=== PATIENT | female | born 1970 | race Caucasian/White ===

== ENCOUNTER 2020-05-01 13:10 | Outpatient (CLI) | payer OTHER, SELFPAY ==
--- NOTE | 2020-05-01 13:13 | ECG_ITS ---
Measurements Intervals [place] Rate: 78 P: 41 ND: 137 QRS: 14 QRSD: 94 T: 32 QT: 379 QTc: 433 Interpretive Statements SINUS RHYTHM WITH SINUS ARRHYTHMIA MINIMAL Q WAVES- HIGH LATERAL LEADS BORDERLINE ECG Electronically Signed On 05-01-2020 16:27:11 CDT by David Bazzi D.O.
[2020-05-01 14:10] LABS: Alanine Aminotransferase 55 U/L (4-35); Albumin Level 4.6 g/dL (3.5-5.1); Alkaline Phosphatase 95 U/L (38-126); Amylase 82 U/L (30-110); Aspartate Amino Transferase 38 U/L (14-36); Bilirubin,Total 0.4 mg/dL (0.2-1.3); Lipase 174 U/L (23-300)
== END 2020-05-01 13:11 | disposition home or self-care (01) ==
LOC: ANHSURGERY 13:13
PROVIDERS: PCP Family Medicine; Visit Provider Surgery
DX: K80.10 Calculus of gallbladder with chronic cholecystitis without obstruction (principal); Z01.812 Encounter for preprocedural laboratory examination; R94.31 Abnormal electrocardiogram [ECG] [EKG]
CPT/HCPCS: 36415; 80076; 82150; 83690; 86850; 86900; 86901; 93005

== ENCOUNTER 2020-05-01 13:17 | Outpatient (CLI) | payer OTHER, SELFPAY ==
[2020-05-01 13:55] LABS: Hematocrit 34.5 % (37.0-47.0); Hemoglobin 11.5 g/dL (12.0-15.0); Mean Corpuscular HGB Conc 33.3 g/dl (32-36); Mean Corpuscular Hemoglobin 31.1 pg (26-34); Mean Corpuscular Volume 93.2 fl (80-100); Mean Platelet Volume 10.5 fl (7.4-10.4); Platelet Count Result 212 k/mm3 (150-375); Red Cell Distribution Width 12.4 % (11.5-14.5); White Blood Count 6.7 K/mm3 (4.5-10.0)
[2020-05-01 14:09] LABS: Alanine Aminotransferase 53 U/L (4-35); Albumin Level 4.7 g/dL (3.5-5.1); Alkaline Phosphatase 94 U/L (38-126); Anion Gap 7 mmol/L (8-16); Aspartate Amino Transferase 38 U/L (14-36); Bilirubin,Total 0.4 mg/dL (0.2-1.3); Blood Urea Nitrogen 21 mg/dL (7-17); Calcium 9.7 mg/dL (8.4-10.2); Carbon Dioxide 29 mmol/L (22-30); Chloride 104 mmol/L (98-107); Cholesterol 237 mg/dL (0-200); Estimated Glomerular Filt Rate > 60; Glucose 90 mg/dL (65-105); HDL Direct 68 mg/dL; Potassium 4.8 mmol/L (3.4-5.0); Sodium 140 mmol/L (137-145); Triglycerides 135 mg/dL (<150)
[2020-05-01 14:19] LABS: LDL Cholesterol Direct 134 mg/dL
[2020-05-01 14:21] LABS: Iron 69 ug/dL (37-170)
[2020-05-01 14:31] LABS: Percent Iron Saturation 18 % (20-50)
[2020-05-01 15:55] LABS: Vitamin D 25 Hydroxy 42.3 ng/mL
== END 2020-05-01 13:18 | disposition home or self-care (01) ==
LOC: ANHLAB 13:21
PROVIDERS: PCP Family Medicine; Visit Provider Physician Assistant Medical
DX: D64.9 Anemia, unspecified (principal); Z13.220 Encounter for screening for lipoid disorders; N91.2 Amenorrhea, unspecified; E55.9 Vitamin D deficiency, unspecified; R79.89 Other specified abnormal findings of blood chemistry
CPT/HCPCS: 36415; 80053; 80061; 82306; 82607; 83540; 83550; 85027

== ENCOUNTER 2020-05-05 01:28 | Outpatient (CLI) | payer OTHER, SELFPAY ==
[2020-05-05 16:32] LABS: SARS-CoV-2 RNA PCR Negative
== END 2020-05-05 01:29 | disposition home or self-care (01) ==
LOC: ANHCOVIDDT 01:28
PROVIDERS: PCP Family Medicine; Visit Provider Surgery
DX: Z01.812 Encounter for preprocedural laboratory examination (principal); Z20.828 Contact with and (suspected) exposure to other viral communicable diseases
CPT/HCPCS: 87635; C9803; U0003

== ENCOUNTER 2020-05-07 00:34 | Day surgery (SDC) | payer OTHER, SELFPAY ==
[2020-05-01 09:47] VITALS: BMI 29.1
--- NOTE | 2020-05-06 14:39 | WPDANESEPPF ---
Anes - Initial Pre Proc Eval Procedure: Operation Date: 05/07/20 10:00 Proposed Procedures p Laparoscopic Cholecystectomy - Sebastian Rodriguez MD Date/Time: 05/06/20 14:39 Surgeon: Sebastian Rodriguez MD Pre Op Diagnosis: Chronic Cholelithiasis With Stones Patient Data Age: 50 Gender: F Height: 1.78 m Weight: 92.08 kg Allergies Allergy/AdvReac Type Severity Reaction Status Date / Time No Known Allergies Allergy Mild Verified 05/01/20 09:48 Home Medications Medication Instructions Recorded Confirmed Type ibuprofen 800 mg PO DAILY 05/01/20 05/01/20 History Patient hx anesthesia problems: post op nausea/vomiting Family hx anesthesia problems: none [facility] Past Medical History Medical History (Updated 05/06/20 @ 14:40 by Buck Infante MD) BMI 29.0-29.9,adult Endometriosis GERD (gastroesophageal reflux disease) Psoriasis Surgical History Surgical History H/O: hysterectomy History of delivery Social History Social History Smoking status: Never smoker Smoking end date: 08/29/08 Alcohol intake: current Drinks per week: 5 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 Questions were solicited and answers provided to the satisfaction of the patient/family/POA.
[2020-05-07] VITALS (9 sets, daily range): BP systolic 103–132; BP diastolic 67–85; PULSE 56–101; RESP 10–20; TEMP 36.1–36.5; O2SAT 98–100
--- NOTE | 2020-05-07 08:05 | WPDHPUPDATE1 ---
History and Physical Update Update Date/Time: 05/07/20 08:05 History and Physical has been reviewed, including an updated exam of the patient. There are NO changes in the patient's condition. Risks, benefits, and alternatives have been discussed and questions answered. Patient agrees to proceed with procedure.
[2020-05-07] MEDS: ACETAMINOPHEN 500 MG TABLET 1000 MG PO (09:01)
[2020-05-07] MEDS: SCOPOLAMINE 1.5 MG PATCH TRANSDERM (09:01)
[2020-05-07] MEDS: LACTATED RINGERS 1,000 ML 30 ML IV CONT ×2 (09:02→11:00)
[2020-05-07] MEDS: KETOROLAC 15 MG/ML VIAL (*BKC) IV PUSH (09:02)
[2020-05-07] MEDS: ceFAZolin 2 GM/D5W 50 ML 2 GM/50 ML BAG IVPB (09:57)
--- NOTE | 2020-05-07 10:00 | PM.PROC ---
Procedure Note - Detailed Date of procedure: 05/07/20 Pre-op diagnosis: Chronic Cholelithiasis With Stones Chronic cholecystitis, cholelithiasis Post-op diagnosis: same Procedure performed: Laparoscopic cholecystectomy Description of procedure: The patient was taken to surgery and induced into general anesthesia. The abdomen was prepped and draped. Trocars were placed in the usual fashion using 0.5% Marcaine with epinephrine and applied Medical optical trocars. A 5 millimeter camera was used. The gallbladder was decompressed with a laparoscopic aspirator. The cholecystotomy was closed with a Vicryl endo-loop. The gallbladder was retracted anterosuperiorly. Adhesions to the gallbladder were taken down so that the cholecystohepatic triangle was exposed. Traction was placed on the infundibulum. The cystic duct and cystic artery were dissected out very clearly. The gallbladder was dissected off the liver at its lower 3rd. Critical view was achieved. We securely clipped and divided the cystic duct and cystic artery. The gallbladder was then further retracted so that the peritoneal attachments to the liver could be divided. Once the gallbladder was freed entirely, it was placed in an Endo-Catch bag and retrieved through the 10 11 epigastric trocar site. The epigastric trocar was then replaced. We reviewed the right upper quadrant. It was irrigated and suctioned. All looked good with no evidence of bleeding or bile leakage. We evacuated CO2 and removed the trocar sleeves. Skin wounds were closed with subcuticular 4 O Monocryl skin suture. The wounds were dressed with Exofin surgical adhesive. Patient was awakened and taken to recovery in good condition. Sponge and needle counts were correct x2. Anesthesia: GETA and local (0.5% Marcaine with epinephrine) Surgeon: Sebastian Rodriguez MD Critical Care Clinical Nurse Specialist: Panda Estimated blood loss (mL): 5 Drains: No Packing: No Pathology: yes (Gallbladder) Complications: None Condition: stable Disposition: PACU Findings: Mild chronic inflammation, no gallstones noted. No biliary ductal dilatation, no liver abnormalities.
[2020-05-07] MEDS: BUPIVACAINE/EPINEPHRINE 0.5% 30 ML VIAL INFILTRATE (10:53)
== END 2020-05-07 12:57 | disposition home or self-care (01) ==
PROVIDERS: PCP Family Medicine; Visit Provider Surgery
PROC: 0FT44ZZ Resection of Gallbladder, Percutaneous Endoscopic Approach (ICD-10-PCS; CPT 47562; principal; 2020-05-07 10:00)
DX: K80.10 Calculus of gallbladder with chronic cholecystitis without obstruction (principal)
CPT/HCPCS: 47562; 36415; 80053; 80061; 80076; 82150; 82306; 82607; 83540; 83550; 83690; 85027; 86850; 86900; 86901; 87635; 88304; 93005; A9270; C1713; C9803; J0690; J1100; J1170; J1885; J2250; J2405; J2704; J3010; J7120; U0003

== ENCOUNTER 2020-06-10 09:47 | Outpatient (CLI) | payer OTHER, SELFPAY ==
[2020-06-10 10:53] LABS: Hematocrit 35.5 % (37.0-47.0); Hemoglobin 11.7 g/dL (12.0-15.0); Mean Corpuscular Hemoglobin 31.2 pg (26-34); Mean Corpuscular Volume 94.7 fl (80-100); Platelet Count Result 228 k/mm3 (150-375); Red Blood Count 3.75 M/mm3 (4.2-5.4); Red Cell Distribution Width 12.5 % (11.5-14.5); White Blood Count 5.9 K/mm3 (4.5-10.0)
[2020-06-10 11:18] LABS: Alanine Aminotransferase 32 U/L (4-35); Albumin Level 4.5 g/dL (3.5-5.1); Alkaline Phosphatase 92 U/L (38-126); Anion Gap 6 mmol/L (8-16); Aspartate Amino Transferase 36 U/L (14-36); Bilirubin,Total 0.7 mg/dL (0.2-1.3); Blood Urea Nitrogen 17 mg/dL (7-17); Calcium 10.2 mg/dL (8.4-10.2); Carbon Dioxide 32 mmol/L (22-30); Chloride 102 mmol/L (98-107); Estimated Glomerular Filt Rate > 60; Glucose 95 mg/dL (65-105); Potassium 4.5 mmol/L (3.4-5.0); Sodium 140 mmol/L (137-145)
[2020-06-10 12:01] LABS: Iron 101 ug/dL (37-170)
[2020-06-10 12:10] LABS: Percent Iron Saturation 29 % (20-50)
== END 2020-06-10 09:48 | disposition home or self-care (01) ==
PROVIDERS: PCP Family Medicine; Visit Provider Physician Assistant Medical
DX: R79.89 Other specified abnormal findings of blood chemistry (principal); N28.9 Disorder of kidney and ureter, unspecified; D64.9 Anemia, unspecified; D50.9 Iron deficiency anemia, unspecified
CPT/HCPCS: 36415; 80053; 83540; 83550; 85027

== ENCOUNTER 2020-09-21 19:54 | Emergency (ER) | payer OTHER, SELFPAY ==
--- NOTE | ~2020-09-21 | XR_ITS ---
EXAMINATION: XR lumbar spine 2-3V EXAM DATE: 09/21/2020 20:55 INDICATION: Low back pain since August 20 radiating to hips. TECHNIQUE: Lumber spine frontal, lateral, lateral L5-S1 projections for interpretation. There is no prior study for comparison. FINDINGS: Mild lumbar dextrocurvature which could be positional or scoliosis. There are cholecystect khoi clips. Vertebral body and disc heights are well-maintained. The vertebral bodies are aligned in t he AP dimension. Mild lumbar facet arthropathy. Sacrum, sacroiliac joints, sacral arcuate lines ar e intact. Paraspinal soft tissue is unremarkable. There are no bony erosions identified. IMPRESSION: Mild lumbar facet arthropathy. Mild dextrocurvature. Reviewed, dictated and finalized at location A. T MARKER
[2020-09-21 19:55] VITALS: BP 149/95; PULSE 87; RESP 18; TEMP 36.2; O2SAT 100
[2020-09-21] MEDS: KETOROLAC (*BKC) 60 MG/2 ML VIAL IM (20:30)
[2020-09-21] MEDS: diazePAM (*CRX) 5 MG TABLET PO (20:31)
[2020-09-21 20:35] VITALS: BP 126/58; PULSE 84; RESP 16; O2SAT 100
[2020-09-21 22:00] VITALS: BP 157/84; PULSE 73; RESP 18; O2SAT 100
--- NOTE | 2020-09-21 22:34 | ED.BACK ---
HPI - Back Pain/Injury General Chief Complaint: Back Pain/Injury Stated Complaint: my back has locked up Time Seen by Provider: 09/21/20 20:00 History of Present Illness HPI Narrative: Patient is a 50-year-old female who presents ER with low back pain. Ongoing for 1 month since lifting up a tote bag around [place]. Today she had some increased discomfort that sharp and this evening it made her go to her knees due to the pain. She has no focal weakness in the legs. No numbness or tingling in the pelvis or lower extremities. Has not found any alleviating factors at home. She did try some Voltaren cream and it did not help. Related Data Allergies Allergy/AdvReac Type Severity Reaction Status Date / Time No Known Allergies Allergy Mild Verified 09/21/20 19:55 Review of Systems Review of Systems: All systems reviewed & are unremarkable except as noted in HPI and below Constitutional: Constitutional: Denies chills and Denies fever(s) Musculoskeletal: Musculoskeletal: Reports back pain, Denies arthralgias and Reports muscle cramps Neurologic: Denies focal weakness, Denies numbness and Denies weakness PMFSH Past Medical History Medical History (Updated 09/21/20 @ 22:37 by Yayo Hazel MD) BMI 29.0-29.9,adult Cholecystectomy planned Endometriosis GERD (gastroesophageal reflux disease) Psoriasis Surgical History Surgical History H/O: hysterectomy History of delivery Hx laparoscopic cholecystectomy 05/07/2020 Family History Family History Mother Family history of primary malignant neoplasm of liver Other Diabetes mellitus Social History Social History Smoking status: Never smoker Smoking end date: 08/29/08 Alcohol intake: current Drinks per week: 5 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 HEAD: Normocephalic, atraumatic. Back: No midline tenderness of the thoracic or lumbar spine. No reproducible paraspinal muscular tenderness of thoracic lumbar spine. No tenderness over the sacrum or SI joint. EXTREMITIES: Normal range of motion. No edema. SKIN: Warm, dry, no rash. NEURO: Alert and oriented x3. PSYCH: Normal mood and affect. Course Course Emergency Course: X-ray with arthritis. Patient still reports pain after Toradol and Valium. Will give 1 dose of [place] here. Discharge with anti-inflammatories muscle relaxers as well as [place] for breakthrough pain. Vital Signs Vital signs: Vital Signs Temperature 97.2 F L 09/21/20 19:55 Pulse Rate 87 09/21/20 19:55 Respiratory Rate 18 09/21/20 19:55 Blood Pressure 149/95 H 09/21/20 19:55 Pulse Oximetry 100 09/21/20 19:55 Temperature 97.2 F L 09/21/20 19:55 Pulse Rate 84 09/21/20 20:35 Respiratory Rate 16 09/21/20 20:35 Blood Pressure 126/58 L 09/21/20 20:35 Pulse Oximetry 100 09/21/20 20:35 MDM - Back Pain/Injury Imaging Data Radiologist's impression: ITS Impressions Lumbar Spine X-Ray 09/21/20 20:57 IMPRESSION: Mild lumbar facet arthropathy. Mild dextrocurvature. Discharge Plan Discharge Clinical Impression: Low back pain Patient Disposition: Home, Self-Care Condition: Stable Instructions: Acute Low Back Pain (ED) Additional Instructions: Return to the ER if you have increased pain in your back, you develop lower extremity weakness/numbness/paralysis, you have numbness or tingling in your private parts, or you are unable to control your ability to urinate/stool. Prescriptions: New cyclobenzaprine 10 mg tablet 10 mg PO TID PRN (Reason: muscle spasm) Qty: 20 RF: 0 hydrocodone-acetaminophen 5-325 mg tablet 1 tablet PO Q6H PRN (Reas
[2020-09-21] MEDS: HYDROcodone/acetaminophen (*CRX) 5-325 MG TABLET 1 TAB PO (22:56)
[2020-09-21 23:00] VITALS: BP 146/88; PULSE 68; RESP 18; O2SAT 99
== END 2020-09-21 23:00 | disposition home or self-care (01) ==
PROVIDERS: Emergency Provider Emergency Medicine; Family Provider Internal Medicine; PCP Family Medicine
DX: M54.5 Low back pain (principal); K21.9 Gastro-esophageal reflux disease without esophagitis; N80.9 Endometriosis, unspecified
CPT/HCPCS: 72100; 96372; 99283; A9270; J1885

== ENCOUNTER → 2021-01-09 11:13 | Outpatient (CLI) | payer OTHER, SELFPAY ==
--- NOTE | ~2021-01-09 | XR_ITS ---
XR_RIBSBICXR1_CR DATE: 01/09/2021 11:49 INDICATION: Pleurodynia TECHNIQUE: PA chest. Multiple views of left and right ribs. COMPARISON: None FINDINGS: Surgical clips, right upper quadrant, consistent with cholecystectomy. No left or right rib fracture or bone destruction is evident. Normal heart size. No hilar or mediastinal enlargement. The lungs are clear of infiltrate or consolid ation. No pleural effusion, pleural thickening or pneumothorax. IMPRESSION: No significant abnormality Reviewed, dictated and finalized at Location A. Reviewed, dictated and finalized at location A. IMPRESSION: No significant abnormality
== END ==
PROVIDERS: PCP Family Medicine; Visit Provider Physician Assistant Medical
DX: R07.81 Pleurodynia (principal)
CPT/HCPCS: 71111

== ENCOUNTER 2021-01-14 09:30 | Outpatient (CLI) | payer OTHER, SELFPAY ==
[2021-01-14 09:46] LABS: Basophils Percent Auto 0.6 % (0.2-1.2); Eosinophils Absolute Auto 0.2 K/mm3 (0-0.3); Eosinophils Percent Auto 2.8 % (0-4.4); Hemoglobin 11.7 g/dL (12.0-15.0); Immature Granulocyte Absolute 0.03 K/mm3 (0.00-0.031); Immature Granulocyte Percent A 0.5 % (0-0.5); Lymphocytes Absolute Auto 1.81 K/mm3 (0.9-3.2); Lymphocytes Percent Auto 28.3 % (18.3-44.2); Mean Corpuscular HGB Conc 32.5 g/dl (32-36); Mean Corpuscular Hemoglobin 31.1 pg (26-34); Mean Corpuscular Volume 95.7 fl (80-100); Monocytes Absolute Auto 0.3 K/mm3 (0.1-0.6); Monocytes Percent Auto 4.7 % (2.6-8.5); Neutrophils Percent Auto 63.1 % (45.5-73.1); Platelet Count Result 206 k/mm3 (150-375); Red Blood Count 3.76 M/mm3 (4.2-5.4); Red Cell Distribution Width 12.2 % (11.5-14.5); White Blood Count 6.4 K/mm3 (4.5-10.0)
[2021-01-14 09:58] LABS: Alanine Aminotransferase 48 U/L (4-35); Albumin Level 4.3 g/dL (3.5-5.1); Alkaline Phosphatase 92 U/L (38-126); Anion Gap 5 mmol/L (8-16); Aspartate Amino Transferase 48 U/L (14-36); Bilirubin,Total 0.3 mg/dL (0.2-1.3); Blood Urea Nitrogen 17 mg/dL (7-17); Calcium 9.4 mg/dL (8.4-10.2); Carbon Dioxide 30 mmol/L (22-30); Chloride 108 mmol/L (98-107); Estimated Glomerular Filt Rate > 60; Glucose 91 mg/dL (65-105); Potassium 4.7 mmol/L (3.4-5.0); Sodium 143 mmol/L (137-145)
[2021-01-14 13:58] LABS: Iron 109 ug/dL (37-170)
[2021-01-14 14:33] LABS: Percent Iron Saturation 35 % (20-50)
[2021-01-15 19:02] LABS: Hepatitis B Surface Antigen Negative (Negative)
[2021-01-15 19:08] LABS: HAV RESULT Negative (Negative); Hepatitis B Core IgM Result Negative (Negative)
[2021-01-15 19:20] LABS: Hepatitis C Virus Antibody Negative (Negative)
== END 2021-01-14 09:31 | disposition home or self-care (01) ==
LOC: ANHLAB 09:32
PROVIDERS: PCP Family Medicine; Visit Provider Family Medicine
DX: E61.1 Iron deficiency (principal); R79.89 Other specified abnormal findings of blood chemistry
CPT/HCPCS: 36415; 80053; 80074; 82977; 83540; 83550; 85025

== ENCOUNTER → 2021-01-30 11:14 | Outpatient (CLI) | payer OTHER, SELFPAY ==
--- NOTE | ~2021-01-30 | CT_ITS ---
EXAMINATION: CT abdomen pelvis w con EXAM DATE: 01/30/2021 11:39 INDICATION: R10.11 - Right upper quadrant pain. TECHNIQUE: Spiral CT of the abdomen and pelvis was performed following intravenous injection of 100 m L Omnipaque 350. Axial, coronal and sagittal images of the abdomen and pelvis were reviewed. The do se-length product (DLP) for this examination was 853.31 mGy-cm. The exposure was tailored according to patient size (auto mA exposure control), and iterative reconstruction (ASIR) was used as additiona l dose reduction technique. There is no prior study for comparison. FINDINGS: The liver, spleen, adrenal glands and pancreas are unremarkable. There are cholecystectomy clips. Portal and splenic veins are patent. Kidneys enhance symmetrically. There is no hydronephr osis. There is 4 cm right renal exophytic cysts. The uterus is not identified and has likely been malave rgically resected. The bladder is unremarkable. There is no retroperitoneal or pelvic lymphadenopat hy. The appendix is normal. The stomach and small bowel are unremarkable. There is expected amount of c olonic stool. No free intraperitoneal gas. The heart is normal in size. There are no pericardial or pleural effusions. The lung bases are unremarkable. The bones are unremarkable. IMPRESSION: 1. No acute intra-abdominal findings. Reviewed, dictated and finalized at location B.
== END ==
PROVIDERS: PCP Family Medicine; Visit Provider Physician Assistant Medical
DX: R10.11 Right upper quadrant pain (principal); G89.29 Other chronic pain
CPT/HCPCS: 74177; Q9967

== ENCOUNTER 2021-02-16 07:30 | Outpatient (CLI) | payer OTHER, SELFPAY ==
[2021-02-16 08:20] LABS: Basophils Percent Auto 0.5 % (0.2-1.2); Eosinophils Absolute Auto 0.1 K/mm3 (0-0.3); Hematocrit 39.4 % (37.0-47.0); Hemoglobin 12.7 g/dL (12.0-15.0); Immature Granulocyte Absolute 0.01 K/mm3 (0.00-0.031); Immature Granulocyte Percent A 0.2 % (0-0.5); Lymphocytes Absolute Auto 1.32 K/mm3 (0.9-3.2); Lymphocytes Percent Auto 22.2 % (18.3-44.2); Mean Corpuscular HGB Conc 32.2 g/dl (32-36); Mean Corpuscular Hemoglobin 31.4 pg (26-34); Mean Corpuscular Volume 97.5 fl (80-100); Mean Platelet Volume 10.9 fl (7.4-10.4); Monocytes Absolute Auto 0.3 K/mm3 (0.1-0.6); Monocytes Percent Auto 5.7 % (2.6-8.5); Neutrophils Absolute Auto 4.1 K/mm3 (1.3-6.7); Neutrophils Percent Auto 69.4 % (45.5-73.1); Platelet Count Result 207 k/mm3 (150-375); Red Blood Count 4.04 M/mm3 (4.2-5.4); Red Cell Distribution Width 12.9 % (11.5-14.5)
[2021-02-18 20:52] LABS: GGT 50 U/L (3-70)
== END 2021-02-16 07:31 | disposition home or self-care (01) ==
PROVIDERS: PCP Family Medicine; Visit Provider Physician Assistant Medical
DX: R74.8 Abnormal levels of other serum enzymes (principal); E61.1 Iron deficiency
CPT/HCPCS: 36415; 82977; 85025

== ENCOUNTER 2021-07-01 01:37 | Day surgery (SDC) | payer OTHER, SELFPAY ==
[2021-06-15 10:29] VITALS: BMI 26.5
--- NOTE | 2021-06-30 13:06 | PM.HPGS ---
History of Present Illness History of Present Illness Consent: Risks, benefits, and alternatives have been discussed and questions answered. Patient agrees to proceed with procedure. Chief complaint: screening Narrative: Sarah Tatum is a 51 year old female was referred for colon cancer screening Review of Systems Review of Systems: All systems reviewed & are unremarkable except as noted in HPI and below PMFSH Past Medical History Medical History BMI 25.0-25.9,adult BMI 27.0-27.9,adult BMI 29.0-29.9,adult Cholecystectomy planned Endometriosis GERD (gastroesophageal reflux disease) Psoriasis Surgical History Surgical History H/O: hysterectomy History of delivery Hx laparoscopic cholecystectomy 05/07/2020 Family History Family History Mother Family history of primary malignant neoplasm of liver Diabetes mellitus Social History Social History Smoking packs per day: 0.5 Smoking cigarettes per day: 10.0 Years smoked: 10 Smoking pack-years: 5.00 Smoking status: Former smoker Tobacco type: cigarettes Smoking end date: 08/29/08 Alcohol intake: current Drinks per week: 6 Alcohol use details: Social Substance use: never Substance use type: does not use Living arrangements: with family Additional living arrangements comments: and daughter 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 Gender identity (if verbalized by the patient): Female Sexual Orientation (if Verbalized by the Patient): Straight or Heterosexual Spiritual care concerns: No Agree to blood products: Yes Meds Home Medications and Allergies Home Medications Medication Instructions Recorded Confirmed Type ferrous sulfate 142 mg (45 mg 142 mg PO DAILY #30 tablet 01/19/21 07/01/21 Rx iron) tablet,extended release Allergies Allergy/AdvReac Type Severity Reaction Status Date / Time No Known Allergies Allergy Mild Verified 07/01/21 07:20 Exam Resp: Auscultation: clear to auscultation bilaterally Cardio: Rate: regular rate Rhythm: regular rhythm GI: GI Palp: Yes Soft to palpation and No Tenderness to palpation present (GI) Assessment and Plan Assessment and plan (1) Screening for colon cancer: Code(s): Z12.11 - Encounter for screening for malignant neoplasm of colon Status: Acute Assessment and Plan: Colonoscopy with possible biopsy or polypectomy or cautery or injection of substances.
[2021-07-01 07:22] VITALS: BP 114/86; PULSE 108; RESP 18; TEMP 36.5; O2SAT 100; BMI 26.2
[2021-07-01] MEDS: LACTATED RINGERS 1,000 ML 150 ML IV CONT (07:31)
--- NOTE | 2021-07-01 08:02 | P.PNAN_ITS ---
Anes - Initial Pre Proc Eval Procedure: Operation Date: 07/01/21 08:30 Proposed Procedures p Screening Colonoscopy - Tristen Bazan MD Date/Time: 07/01/21 08:02 Surgeon: Tristen Bazan MD Pre Op Diagnosis: screening Patient Data Age: 51 Gender: F Height: 1.78 m Weight: 82.8 kg Last Vital Signs Temp 97.7 F 07/01/21 07:22 Pulse 108 H 07/01/21 07:22 Resp 18 07/01/21 07:22 BP 114/86 07/01/21 07:22 Pulse Ox 100 07/01/21 07:22 Allergies Allergy/AdvReac Type Severity Reaction Status Date / Time No Known Allergies Allergy Mild Verified 07/01/21 07:20 Home Medications Medication Instructions Recorded Confirmed Type ferrous sulfate 142 mg (45 mg 142 mg PO DAILY #30 tablet 01/19/21 07/01/21 Rx iron) tablet,extended release Patient hx anesthesia problems: none Family hx anesthesia problems: none Results Review: All pre-operative results and documents have been reviewed as part of the pre-operative evaluation. [facility] Past Medical History Medical History (Updated 04/28/21 @ 08:23 by Joanne Rodney, PAC) BMI 25.0-25.9,adult BMI 27.0-27.9,adult BMI 29.0-29.9,adult Cholecystectomy planned Endometriosis GERD (gastroesophageal reflux disease) Psoriasis Surgical History Surgical History H/O: hysterectomy History of delivery Hx laparoscopic cholecystectomy 05/07/2020 Family History Family History (Updated 04/28/21 @ 08:13 by Art Martin) Mother Family history of primary malignant neoplasm of liver Diabetes mellitus Social History Social History (Updated 04/28/21 @ 08:15 by Art Martin) Smoking packs per day: 0.5 Smoking cigarettes per day: 10.0 Years smoked: 10 Smoking pack-years: 5.00 Smoking status: Former smoker Tobacco type: cigarettes Smoking end date: 08/29/08 Alcohol intake: current Drinks per week: 6 Alcohol use details: Social Substance use: never Substance use type: does not use Living arrangements: with family Additional living arrangements comments: and daughter 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 Gender identity (if verbalized by the patient): Female Sexual Orientation (if Verbalized by the Patient): Straight or Heterosexual Spiritual care concerns: No Agree to blood products: Yes Anes - Eval Final PreProcedure Day of Procedure 07/01/21 08:02 Patient weight: overweight Heart: regular rate and rhythm Lungs: clear to auscultation Airway: Mallampati scale class II Neurological: alert and oriented Last oral intake: >/= 8 hours ASA classification: II Emergent: no Anesthetic plan: proceed Anesthesia type and monitoring: general GIVS and standard monitoring Results Review: All pre-operative results and documents have been reviewed as part of the pre-operative evaluation. Informed Consent: The patient's anesthetic plan and its attendant risks and benefits were discussed with the patient/family/POA. Questions were solicited and answers provided to the satisfaction of the patient/family/POA.
[2021-07-01 08:49] VITALS: BP 113/78; PULSE 89; RESP 20; O2SAT 100
[2021-07-01 08:59] VITALS: BP 117/78; PULSE 86; RESP 18; O2SAT 100
[2021-07-01 09:09] VITALS: BP 115/80; PULSE 81; RESP 23; O2SAT 100
== END 2021-07-01 09:22 | disposition home or self-care (01) ==
PROVIDERS: PCP Family Medicine; Visit Provider Internal Medicine Gastroenterology
PROC: 0DJD8ZZ Inspection of Lower Intestinal Tract, Via Natural or Artificial Opening Endoscopic (ICD-10-PCS; CPT 45378; principal; 2021-07-01 08:30)
DX: Z12.11 Encounter for screening for malignant neoplasm of colon (principal); K21.9 Gastro-esophageal reflux disease without esophagitis; N80.9 Endometriosis, unspecified; L40.9 Psoriasis, unspecified; Z87.891 Personal history of nicotine dependence
CPT/HCPCS: 45378; J2001; J2704; J7120

== ENCOUNTER → 2021-10-13 11:36 | Outpatient (CLI) | payer OTHER, SELFPAY ==
--- NOTE | ~2021-10-13 | DEXA_ITS ---
Bone Density Report Name: ILENE HART Age: 51 Sex: Female Ethnicity: White Date of : 1970 Indication: postmenopausal; screening for osteoporosis; anorexia or bulimia; hysterectomy; Referring Provider: Joanne Rodney Study: Bone densitometry was performed. Exam Date: October 13, 2021 Accession number: [id number] Bone Density: Region BMD T-score Z-score Classification AP Spine (L1-L4) 1.053 0.1 0.9 Normal Femoral Neck (Left) 1.011 1.5 2.3 Normal Total Hip (Left) 1.086 1.2 1.7 Normal Femoral Neck (Right) 0.988 1.2 2.1 Normal Total Hip (Right) 1.040 0.8 1.3 Normal Total Hip Mean 1.063 1.0 1.5 Normal World Health Organization criteria for BMD impression classify patients as: Normal (T-score at or above -1.0), Osteopenia (T-score between -1.0 and -2.5), or Osteoporosis (T-score at or below -2.5). 10-year Fracture Risk: FRAX not reported because: All T-scores for Spine Total, Hip Total, Femoral Neck at or above -1.0 Clinical Information Provided by Patient: Has used the following medications: Calcium, MULTI VITAMIN Has the following medical conditions: Anorexia or Bulimia, Hysterectomy Patient maximum height was 70 Menopause Age: 35 No regular weight bearing exercise Drinks caffeinated beverages Onset of menses at age 15 Number of children 1 Impression: The patient has normal bone mass. Discussion: BONE DENSITY IS ABOVE THE MINIMUM DESIRABLE LEVEL AT ALL SKELETAL SITES TESTED. This patient?s bone mineral density is above the minimum desirable level (T-score -1.0 or better) at all sites measured. The patient should follow a healthful lifestyle (good nutrition with adequate calcium and vitamin D, and appropriate weight-bearing exercise). Follow-Up: Consider repeating this study in 5 years or sooner if there is some new clinical indication. Reported by: JANAY on 10/13/2021 11:49:00 AM. Reviewed, dictated and finalized at location [facility] WISE
== END ==
PROVIDERS: Visit Provider Physician Assistant Medical
DX: Z13.820 Encounter for screening for osteoporosis (principal); Z78.0 Asymptomatic menopausal state
CPT/HCPCS: 77080

== ENCOUNTER 2023-03-14 15:50 | Outpatient (CLI) | payer OTHER, SELFPAY ==
[2023-03-14 16:24] LABS: Hematocrit 37.4 % (37.0-47.0); Hemoglobin 12.2 g/dL (12.0-15.0); Mean Corpuscular HGB Conc 32.6 g/dl (32-36); Mean Corpuscular Hemoglobin 31.4 pg (26-34); Mean Corpuscular Volume 96.4 fl (80-100); Mean Platelet Volume 10.8 fl (7.4-10.4); Platelet Count Result 245 k/mm3 (150-375); Red Blood Count 3.88 M/mm3 (4.2-5.4); Red Cell Distribution Width 12.6 % (11.5-14.5); White Blood Count 6.8 K/mm3 (4.5-10.0)
[2023-03-14 16:37] LABS: Alanine Aminotransferase 41 U/L (6-35); Albumin Level 4.7 g/dL (3.5-5.1); Alkaline Phosphatase 80 U/L (38-126); Anion Gap 10 mmol/L (8-16); Aspartate Amino Transferase 36 U/L (14-36); Bilirubin,Total 0.5 mg/dL (0.2-1.3); Blood Urea Nitrogen 16 mg/dL (7-17); Calcium 9.4 mg/dL (8.4-10.2); Carbon Dioxide 27 mmol/L (22-30); Chloride 105 mmol/L (98-107); Estimated Glomerular Filt Rate > 60; Glucose 87 mg/dL (65-110); Potassium 3.8 mmol/L (3.4-5.0); Sodium 142 mmol/L (137-145)
== END 2023-03-14 15:51 | disposition home or self-care (01) ==
LOC: ANHLAB 15:52
PROVIDERS: PCP Family Medicine; Visit Provider Nurse Practitioner Family
DX: R19.7 Diarrhea, unspecified (principal); R10.9 Unspecified abdominal pain
CPT/HCPCS: 36415; 80053; 85027

== ENCOUNTER 2023-03-15 07:01 | Outpatient (NON) | payer OTHER, SELFPAY ==
[2023-03-15 10:08] LABS: Toxigenic C. Diff POSITIVE (NEGATIVE)
== END 2023-03-15 07:02 | disposition home or self-care (01) ==
PROVIDERS: PCP Family Medicine; Visit Provider Nurse Practitioner Family
DX: R10.9 Unspecified abdominal pain (principal); R19.7 Diarrhea, unspecified
CPT/HCPCS: 87045; 87177; 87209; 87427; 87493

== ENCOUNTER 2024-11-13 09:35 | Outpatient (CLI) | payer OTHER, SELFPAY ==
[2024-11-13 10:13] LABS: Hemoglobin 13.1 g/dL (12.0-15.0); Mean Corpuscular HGB Conc 32.8 g/dl (32-36); Mean Corpuscular Hemoglobin 31.3 pg (26-34); Mean Corpuscular Volume 95.7 fl (80-100); Mean Platelet Volume 10.8 fl (7.4-10.4); Platelet Count Result 220 k/mm3 (150-375); Red Blood Count 4.18 M/mm3 (4.2-5.4); White Blood Count 6.6 K/mm3 (4.5-10.0)
[2024-11-13 10:21] LABS: Anion Gap 12 mmol/L (4-12); Blood Urea Nitrogen 13 mg/dL (7-17); Calcium 10.1 mg/dL (8.4-10.2); Carbon Dioxide 26 mmol/L (22-30); Chloride 103 mmol/L (98-107); Cholesterol 241 mg/dL (0-200); Estimated Glomerular Filt Rate > 60; Glucose 109 mg/dL (65-110); HDL Direct 81 mg/dL; Potassium 4.8 mmol/L (3.4-5.0); Sodium 141 mmol/L (137-145); Triglycerides 152 mg/dL (<150)
--- OUTSIDE RECORDS SUMMARY | 2024-11-13 10:27 | XMS_ITS | Referral Summary ---
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 Gender Identity Not on file Sexual Orientation Not on file Last Filed Vital Signs Vital Sign Reading Time Taken Comments Blood Pressure 122/78 01/10/2015 2:39 PM CDT Pulse 86 12/27/2014 6:40 AM CDT Temperature - - Respiratory Rate - - Oxygen Saturation - - Inhaled Oxygen Concentration - - Weight 88.5 kg (195 lb) 09/04/2019 8:19 AM HR GENERALIST Height 177.8 cm (5' 10 ) 09/04/2019 8:19 AM HR GENERALIST Body Mass Index 27.98 09/04/2019 8:19 AM HR GENERALIST Plan of Treatment Not on file Procedures Procedure Name Priority Date/Time Associated Diagnosis Comments SCREENING MAMMOGRAM BILATERAL W BLANE Schedule Routine, Read Routine (OP Routine) 06/19/2024 1:07 PM CDT Screening mammogram, encounter for from Last 3 Months or Most Recently Relevant to Health Maintenance Results * Screening Mammogram Bilateral W Blane (06/19/2024 1:07 PM CDT) Anatomical Region Laterality Modality Breast Bilateral Mammography Narrative 06/19/2024 3:34 PM CDT Examination: Screening Mammogram Bilateral W Blane: 06/19/24 Clinical: Screening mammogram, encounter for. Prior Study Comparisons: Comparison was made to the prior available relevant studies at the time of interpretation. Findings: Screening Mammogram Bilateral W Blane Bilateral No significant masses, malignant type calcifications, skin thickening, nipple retraction, or significant lymphadenopathy is noted in either breast. Computer Aided Detection was utilized for the interpretation of this study. There are scattered areas of fibroglandular density. The patient will be notified of results by letter. Impression: BI-RADS ATLAS category (overall): 1 - Negative Overall Assessment: 1 - Negative Recommendation: - Routine Screening Mammogram in 1 Yr for both breasts. us Self Screening Mammogram IMG MAMMO PROCEDURES Fi nal Result from Last 3 Months or Most Recently Relevant to Health [place] [address] [facility] Care Teams Certified Medical Records Coder Relationship Specialty Start Date End Date Benjie Marion MD PCP - General 06/29/19
--- OUTSIDE RECORDS SUMMARY | 2024-11-13 10:27 | XMS_ITS | Clinical Summary ---
Author Organization [facility] Address [address] [place] [address] Phone Care Team Providers Care Organic Search Lead Name Role Phone Unavailable Primary Care Provider Unavailabl e Allergies No known active allergies Medications IBUPROFEN ORAL Take by mouth. 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 Not on file Not on fi le Last Filed Vital Signs Vital Sign Reading Time Taken Comments Blood Pressure 124/82 08/01/2013 10:42 AM CRATER AND PACKER Pulse - - Temperature - - Respiratory Rate - - Oxygen Saturation - - Inhaled Oxygen Concentration - - Weight 96.6 kg (213 lb) 08/01/2013 10:42 AM CRATER AND PACKER Height 175.3 cm (5' 9 ) 08/01/2013 10:42 AM CRATER AND PACKER Body Mass Index 31.45 08/01/2013 10:42 AM CRATER AND PACKER Plan of Treatment Health Maintenance Due Date Last Done Comments PNEUMOCOCCAL VACCINE 0-49 YE ARS (1 of 2 - PCV) 1976 DTAP/TDAP/TD VACCINES (1 - Tdap) 1989 HEPATITIS B VACCINES (1 of 3 - 19+ 3-dose series) 1989 BREAST CANCER SCREENING 03/29/2014 03/29/20 13 (Previously completed) COLORECTAL SCREENING 2015 Colorectal Cancer Screening 2015 FIT-DNA Q 3 years 2015 FIT/FOBT Q 1 year 2015 Flex Sig/CT Colonography Q 5 years 2015 CERVICAL CANCER SCREENING 03/29/20162012 (Previously completed) ZOSTER VACCINE (1 of 2) 2020 INFLUENZA VACCINE (#1) 2024 Insurance [facility] OPEN ACCESS HMO
--- OUTSIDE RECORDS SUMMARY | 2024-11-13 10:27 | XMS_ITS | Clinical Summary ---
Author Organization [address] Address [facility] [place] [address] Care Team Providers Care Real Estate Utilization Officer Name Role Phone Benjie Marion MD Primary Care Provider [phone] Allergies No known active allergies Surgical History Surgery Date Site/Laterality Comments NM DELIVERY ONLY Section - (Added by TW Conv) NM DILATION & CURETTAGE DX&/ THER NONOBSTETRIC Dilation And Curettage - 2013 (Added by TW Conv) HYSTEROSCOPY Hysteroscopy With Resection For Intrauterine Polyp Removal - (Added by TW Conv) LAPAROSCOPIC HYSTERECTOMY Laparoscopy With Total Hysterectomy - TLHBS (Added by TW Conv) Medical History Medical History Date Comments History of gestational diabetes History of gestational diabetes - (Added by TW Conv) Personal history of diseases of skin or subcutaneous tissue History of psoriasis - (Adde d by TW Conv) Family History Medical History Relation Name Comments Cervical cancer Mother Family histo ry of cervical cancer - (Added by TW Conv) Diabetes Mother Family history of diabetes mellitus - (Added by TW Conv) Hypertension Mother Family history of hypertension - (Added by TW Conv) Stroke Mother Family history of cerebrovascular accident - (Added by TW Conv) Diabetes Mother's Sister Family histo ry of diabetes mellitus - (Added by TW Conv) Hypertension Mother's Sister Family histo ry of hypertension - (Added by TW Conv) Stroke Mother's Sister Family histo ry of cerebrovascular accident - (Added by TW Conv) Relation Name Status Comments Mother Mother's Sister Social History Tobacco Use Types Packs/Day Years Used Date Smoking Tobacco: Never Personal Safety Answer Date Recorded Getting School Help Needed Not on file 11/11 Comments Unknown Sex and Gender Information Value Date Recorded Sex Assigned at Not on file Legal Sex Female 6:06 PM [employer]OL PL[employer] Gender Identity Not on file Sexual Orientation Not on file Obstetrics History Last Filed Vital Signs Vital Sign Reading Time Taken Comments Blood Pressure 122/78 01/10/2015 2:39 PM CDT Pulse 86 12/27/2014 6:40 AM CDT Temperature - - Respiratory Rate - - Oxygen Saturation - - Inhaled Oxygen Concentration - - Weight 88.5 kg (195 lb) 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 Height 177.8 cm (5' 10 ) 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 Body Mass Index 27.98 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 Plan of Treatment Health Maintenance Due Date Last Done Comments Cervical Cancer Screening 1970 Colon Cancer Screening-Colonoscopy 1970 Depression Screening 1970 Hepatitis C Screening 1970 DTaP/Tdap/Td Vaccine (1 - Tdap) 1981 Hepatitis B Screening 1988 Regular Well Visit/Exam 18-64 1988 Zoster Vaccine (1 of 2) 2020 Influenza Vaccine (#1) 2024 Breast Cancer Screening-Mammogram 06/19/2025 06/19/2024, 03/08/2023, 02/08/2022, Additional history exists Pneumococcal vaccine <65 Aged Out No longer eligible based on patient's age to complete this topic Procedures Procedure Name Priority Date/Time Associated Diagnosis [...] Most [facility] Care Teams Real Estate Utilization Officer Relationship Specialty Start Date End Date Benjie Marion MD PCP - General 06/29/19
[2024-11-13 10:32] LABS: LDL Cholesterol Direct 115 mg/dL
[2024-11-13 10:41] LABS: Iron 116 ug/dL (37-170)
[2024-11-13 10:47] LABS: Percent Iron Saturation 37 % (20-50)
[2024-11-13 10:58] LABS: Vitamin D 25 Hydroxy 57.9 ng/mL
== END 2024-11-13 09:36 | disposition home or self-care (01) ==
LOC: ANHLAB 09:36
PROVIDERS: PCP Family Medicine; Visit Provider Nurse Practitioner Family
DX: E78.5 Hyperlipidemia, unspecified (principal); E61.1 Iron deficiency; N28.9 Disorder of kidney and ureter, unspecified; R79.89 Other specified abnormal findings of blood chemistry; E55.9 Vitamin D deficiency, unspecified
CPT/HCPCS: 36415; 80048; 80061; 82306; 83540; 83550; 84443; 85027